=== PATIENT | male | born 1990 | race Caucasian/White ===

== ENCOUNTER 2019-05-20 06:41 | Day surgery (SDC) | payer BC ==
[2019-05-18 12:30] VITALS: BMI 44.9
[~2019-05-20 06:41] MED LIST: LACTATED RINGERS 1,000 ML IV SCH; LIDOCAINE 1% 20 ML VIAL (10MG/ML) FOR IV START INTRADERMA PRN
[2019-05-20 06:58] VITALS: TEMP 97.8
[2019-05-20] MEDS ORDERED: LACTATED RINGERS 1,000 ML IV ONE (07:05)
[2019-05-20] MEDS ORDERED: MIDAZOLAM 2 MG/2 ML VIAL ONE (07:36)
[2019-05-20] MEDS ORDERED: PROPOFOL 10 MG/ML 20 ML VIAL IV ONE (07:36)
[2019-05-20] MEDS ORDERED: fentaNYL (PF) 50 MCG/ML 2 ML AMP ONE (07:36)
--- NOTE | 2019-05-20 07:42 | P.GSHP ---
History of Present Illness H&P Date: 05/20/19 Chief Complaint: Change in bowel habits 29-year-old male here today for colonoscopy. Patient has had persistent left upper quadrant abdominal pain. History of diverticulitis 5 years ago. Some intermittent diarrhea and constipation. No rectal bleeding or melena. Past Medical History Past Medical History: No Reported History Additional Past Medical History / Comment(s): PAIN IN UPPER/MIDDLE ABD. DIVERTICULITIS 2013 History of Any Multi-Drug Resistant Organisms: None Reported Past Surgical History: No Surgical Hx Reported Additional Past Surgical History / Comment(s): COLONOSCOPY Past Anesthesia/Blood Transfusion Reactions: No Reported Reaction Additional Past Anesthesia/Blood Transfusion Reaction / Comment(s): never been given blood Smoking Status: Current every day smoker - Past Family History Mother Family Medical History: No Reported History Medications and Allergies Home Medications Medication Instructions Recorded Confirmed Type No Known Home Medications 05/18/19 05/18/19 History Allergies Allergy/AdvReac Type Severity Reaction Status Date / Time No Known Allergies Allergy Verified 05/18/19 12:23 Surgical - Exam Vital Signs Temp Pulse Resp BP Pulse Ox 97.8 F 81 18 148/93 96 05/20/19 06:57 05/20/19 06:57 05/20/19 06:57 05/20/19 06:57 05/20/19 06:57 Physical exam: General: Well-developed, well-nourished HEENT: Normocephalic, sclerae nonicteric, perinasal psoriasis Abdomen: Nontender, nondistended Extremities: No edema Neuro: Alert and oriented Assessment and Plan (1) Change in bowel habits Narrative/Plan: Will proceed with colonoscopy at this time Current Visit: Yes Status: Acute Code(s): R19.4 - CHANGE IN BOWEL HABIT SNOMED Code(s): 995439954
--- NOTE | 2019-05-20 07:57 | P.PCN ---
Date of Procedure: 05/20/19 Procedure(s) Performed: PREOPERATIVE DIAGNOSIS: Diverticulitis, change in bowel habits POSTOPERATIVE DIAGNOSIS: Diverticulosis PROCEDURE: Colonoscopy ANESTHESIA: MAC SURGEON: Amrit Giordano M.D. SPECIMENS: None ENDOSCOPIC PROCEDURE: The patient was placed on the endoscopy table in the left decubitus position. The Olympus colonoscope was inserted into the anus and passed under direct visualization to the base of the cecum. The appendiceal orifice was visualized. From that point the scope was slowly withdrawn inspecting all surfaces carefully. There were no neoplastic or polypoid lesions throughout the cecum, ascending, transverse, descending, sigmoid and rectum. There was mild left-sided diverticulosis noted. In the sigmoid colon there was noted to be very mild inflammatory changes seen sporadically. Digital rectal examination was normal. The patient was taken to the recovery room in stable condition per anesthesia guidelines. RECOMMENDATIONS: Patient's pain subjectively present in the left upper quadrant. We'll plan repeat CAT scan at this time. Symptoms could be related to mild chronic sigmoid diverticulitis. Looking at the patient's previous CAT scan in the area of diverticulitis was involving the junction of descending colon and sigmoid. Further recommendations will follow CAT scan study.
[2019-05-20 08:01] VITALS: RESP 16
[2019-05-20 08:21] VITALS: BP 129/84; PULSE 63
== END 2019-05-20 08:42 | disposition home or self-care (01) ==
LOC: ORWHC2ENDO 06:41
PROVIDERS: ATTEND Surgery
DX: K57.30 Diverticulosis of large intestine without perforation or abscess without bleeding (principal); F17.200 Nicotine dependence, unspecified, uncomplicated
CPT/HCPCS: 45378; J2250; J3010; J2704; 74177

== ENCOUNTER → 2019-05-20 | Outpatient (CLI) | payer BC ==
--- NOTE | 2019-05-20 12:26 | CT ---
EXAMINATION TYPE: CT abdomen pelvis w con DATE OF EXAM: 05/20/2019 COMPARISON: 06/16/2014 HISTORY: LUQ pain CT DLP: 4586.7 mGycm CONTRAST: CT scan of the abdomen and pelvis is performed with Oral Contrast and with IV Contrast, patient injec ilia with 100 mL of Isovue 300. FINDINGS: LUNG BASES-: No visible nodule. No infiltrate. LIVER/GB: No calcified gallstones. No space occupying hepatic lesion. Biliary tree is of normal ca liber. PANCREAS: No inflammation. No distinct mass. SPLEEN: No splenic enlargement. No lesion seen. ADRENALS: No nodule. No thickening. KIDNEYS/BLADDER: No hydronephrosis. No nephrolithiasis. No distinct renal mass. Urinary bladder g rossly unremarkable. BOWEL: Normal appendix. Normal bowel caliber. No inflammation. Scattered diverticula of the sigmoid colon without diverticulitis. GENITAL ORGANS: No gross abnormality. LYMPH NODES: No greater than 1cm abdominal or pelvic lymph nodes are appreciated. AORTA: No significant abnormality. OSSEOUS STRUCTURES: No significant abnormality is seen. OTHER: No significant additional abnormality is seen. IMPRESSION: 1. No evidence for diverticulitis at this time. Scattered sigmoid diverticulosis.
== END | disposition home or self-care (01) ==
LOC: RADCTMAIN 09:43
PROVIDERS: ATTEND Surgery
DX: K57.30 Diverticulosis of large intestine without perforation or abscess without bleeding (principal)
CPT/HCPCS: 74177; Q9967

== ENCOUNTER 2022-04-12 17:34 | Emergency (ER) | payer BC, OTHER ==
[2022-04-12 17:39] VITALS: RESP 18; TEMP 100
[2022-04-12] MEDS ORDERED: IBUPROFEN 600 MG TAB PO STA (18:15)
[2022-04-12] MEDS ORDERED: ACETAMINOPHEN TAB 325 MG TAB PO STA (18:15)
[2022-04-12] MEDS ORDERED: KETOROLAC 15 MG/ML 1 ML VIAL IVP STA (19:32)
[2022-04-12] MEDS ORDERED: SODIUM CHLORIDE 0.9% 1,000 ML IV STA ×2 (19:32→19:36)
--- NOTE | 2022-04-12 19:36 | ED ---
Abdominal Pain HPI - General Chief Complaint: Abdominal Pain Stated Complaint: abd pain Time Seen by Provider: 04/12/22 18:55 Source: patient, RN notes reviewed Mode of arrival: ambulatory Limitations: no limitations - History of Present Illness Initial Comments: 31-year-old male history diverticulitis the past who states he had the onset around 7 this morning lower abdominal pain so she left lower quadrant some right upper quadrant also chills and fever. No diarrhea no vomiting until he arrived to the emergency department. No cough or phlegm production no sore throat earaches rhinorrhea. He states he feels very summer to his prior episode of d iverticulitis 07/07 severity dull achy in nature he also back pain he states. MD Complaint: abdominal pain, other - Related Data Home Medications Medication Instructions Recorded Confirmed No Known Home Medications 05/18/19 05/18/19 Allergies Allergy/AdvReac Type Severity Reaction Status Date / Time No Known Allergies Allergy Verified 04/12/22 17:38 Review of Systems ROS Statement: Those systems with pertinent positive or pertinent negative responses have been documented in the HPI. ROS Other: All systems not noted in ROS Statement are negative. Past Medical History Past Medical History: No Reported History Additional Past Medical History / Comment(s): PAIN IN UPPER/MIDDLE ABD. DIVERTICULITIS 2014 History of Any Multi-Drug Resistant Organisms: None Reported Past Surgical History: No Surgical Hx Reported Additional Past Surgical History / Comment(s): COLONOSCOPY Past Anesthesia/Blood Transfusion Reactions: No Reported Reaction Additional Past Anesthesia/Blood Transfusion Reaction / Comment(s): never been given blood Past Psychological History: No Psychological Hx Reported Smoking Status: Current every day smoker Past Alcohol Use History: Occasional Past Drug Use History: Marijuana - Past Family History Mother Family Medical History: No Reported History General Exam - General Exam Comments Initial Comments: This is a well-developed well-nourished awake alert oriented 6 male Limitations: no limitations General appearance: alert, in no apparent distress Head exam: Present: atraumatic, normocephalic, normal inspection Eye exam: Present: normal appearance, PERRL, EOMI. Absent: scleral icterus, conjunctival injection, periorbital swelling ENT exam: Present: normal exam, mucous membranes moist Neck exam: Present: normal inspection, full ROM, other (Surgery or bruits). Absent: tenderness, meningismus, lymphadenopathy Respiratory exam: Present: normal lung sounds bilaterally. Absent: respiratory distress, wheezes, rales, rhonchi, stridor Cardiovascular Exam: Present: normal rhythm, tachycardia. Absent: systolic murmur, diastolic murmur, rubs, gallop, clicks GI/Abdominal exam: Present: soft, tenderness (Tenderness over the left lower quadrant and some right upper quadrant tenderness.), normal bowel sounds. Absent: distended, guarding, rebound, rigid Rectal exam: Present: deferred Extremities exam: Present: normal inspection, full ROM, normal capillary refill. Absent: tenderness, pedal edema, joint swelling, calf tenderness Back exam: Present: normal inspection, full ROM. Absent: tenderness Neurological exam: Present: alert, oriented X3, CN II-XII intact Psychiatric exam: Present: normal affect, normal mood Skin exam: Present: warm, dry, intact, normal color. Absent: rash Course Vital Signs 04/12/22 17:35 Temperature 100 F H Pulse Rate 130 H Respiratory 18 Rate Blood Pressure 123/78 O2 Sat by Pulse 99 Oximetry Medical Decision Making - Medical Decision Making Patient is so much improved after the next round of medication given. Patient does have COVID-19 is likely this is the cause of the pain he was dehydrated also. We did discuss treatment outpatient he declined at this time. Rather do it naturally. - Lab Data Result diagrams: 04/12/22 20:05 04/12/22 20:05 Lab Results 04/12/22 04/12/22 04/12/22 Range/Units 17:42 20:05 20:05 WBC 10.1 (3.8-10.6) k/uL RBC 5.39 (4.30-5.90) m/uL Hgb 16.3 (13.0-17.5) gm/dL Hct 48.8 (39.0-53.0) % MCV 90.4 (80.0-100.0) fL MCH 30.3 (25.0-35.0) pg MCHC 33.5 (31.0-37.0) g/dL RDW 13.6 (11.5-15.5) % Plt Count 240 (150-450) k/uL MPV 7.8 Neutrophils % 86 % Lymphocytes % 4 % Monocytes % 6 % Eosinophils % 1 % Basophils % 0 % Neutrophils # 8.7 H (1.3-7.7) k/uL Lymphocytes # 0.4 L (1.0-4.8) k/uL Monocytes # 0.7 (0-1.0) k/uL Eosinophils # 0.1 (0-0.7) k/uL Basophils # 0.0 (0-0.2) k/uL Sodium 137 (137-145) mmol/L Potassium 3.8 (3.5-5.1) mmol/L Chloride 105 (98-107) mmol/L Carbon Dioxide 24 (22-30) mmol/L Anion Gap 8 mmol/L BUN 11 (9-20) mg/dL Creatinine 0.80 (0.66-1.25) mg/dL Est GFR (CKD-EPI)AfAm >90 (>60 ml/min/1.73 sqM) Est GFR (CKD-EPI)NonAf >90 (>60 ml/min/1.73 sqM) Glucose 97 (74-99) mg/dL Plasma Lactic Acid Daryn (0.7-2.0) mmol/L Calcium 9.4 (8.4-10.2) mg/dL Total Bilirubin 0.4 (0.2-1.3) mg/dL AST 21 (17-59) U/L ALT 23 (4-49) U/L Alkaline Phosphatase 67 (38-126) U/L Total Protein 7.4 (6.3-8.2) g/dL Albumin 4.4 (3.5-5.0) g/dL Amylase 53 (30-110) U/L Lipase 30 (23-300) U/L Coronavirus (PCR) Detected A (Not Detectd) 04/12/22 Range/Units 20:05 WBC (3.8-10.6) k/uL RBC (4.30-5.90) m/uL Hgb (13.0-17.5) gm/dL Hct (39.0-53.0) % MCV (80.0-100.0) fL MCH (25.0-35.0) pg MCHC (31.0-37.0) g/dL RDW (11.5-15.5) % Plt Count (150-450) k/uL MPV Neutrophils % % Lymphocytes % % Monocytes % % Eosinophils % % Basophils % % Neutrophils # (1.3-7.7) k/uL Lymphocytes # (1.0-4.8) k/uL Monocytes # (0-1.0) k/uL Eosinophils # (0-0.7) k/uL Basophils # (0-0.2) k/uL Sodium (137-145) mmol/L Potassium (3.5-5.1) mmol/L Chloride (98-107) mmol/L Carbon Dioxide (22-30) mmol/L Anion Gap mmol/L BUN (9-20) mg/dL Creatinine (0.66-1.25) mg/dL Est GFR (CKD-EPI)AfAm (>60 ml/min/1.73 sqM) Est GFR (CKD-EPI)NonAf (>60 ml/min/1.73 sqM) Glucose (74-99) mg/dL Plasma Lactic Acid Daryn 1.0 (0.7-2.0) mmol/L Calcium (8.4-10.2) mg/dL Total Bilirubin (0.2-1.3) mg/dL AST (17-59) U/L ALT (4-49) U/L Alkaline Phosphatase (38-126) U/L Total Protein (6.3-8.2) g/dL Albumin (3.5-5.0) g/dL Amylase (30-110) U/L Lipase (23-300) U/L Coronavirus (PCR) (Not Detectd) - Radiology Data Radiology results: report reviewed (Imaging reviewed no acute findings.), image reviewed Disposition Clinical Impression: COVID-19, Abdominal pain, Febrile illness, acute, Dehydration, Tachycardia Disposition: HOME SELF-CARE Condition: Good Instructions (If sedation given, give patient instructions): Abdominal Pain (ED), COVID-19 (Coronavirus Disease 2019) (ED), Safely Care for Someone Who Has COVID-19 (ED), How to Recover from COVID-19 at Home (ED) Is patient prescribed a controlled substance at d/c from ED?: No Referrals: Eriberto Oshea MD [Primary Care Provider] - 1-2 days Decision Date: 04/12/22 Decision Time: 23:12
[2022-04-12 20:26] LABS: Basophils % (A) 0 %; Eosinophils # (A) 0.1 k/uL (0-0.7); Eosinophils % (A) 1 %; HCT 48.8 % (39.0-53.0); HGB 16.3 gm/dL (13.0-17.5); Lymphocytes # (A) 0.4 k/uL (1.0-4.8); Lymphocytes % (A) 4 %; MCH 30.3 pg (25.0-35.0); MCHC 33.5 g/dL (31.0-37.0); MCV 90.4 fL (80.0-100.0); Mean Platelet Volume 7.8; Monocytes # (A) 0.7 k/uL (0-1.0); Monocytes % (A) 6 %; Neutrophils # (A) 8.7 k/uL (1.3-7.7); Neutrophils % (A) 86 %; Platelet Count 240 k/uL (150-450); RBC 5.39 m/uL (4.30-5.90); RDW 13.6 % (11.5-15.5); WBC 10.1 k/uL (3.8-10.6)
[2022-04-12 20:48] LABS: ALT 23 U/L (4-49); AST 21 U/L (17-59); African American GFR (CKD) >90 (>60 ml/min/1.73 sqM); Albumin 4.4 g/dL (3.5-5.0); Alkaline Phosphatase 67 U/L (38-126); Amylase 53 U/L (30-110); Anion Gap 8 mmol/L; Blood Urea Nitrogen 11 mg/dL (9-20); Calcium 9.4 mg/dL (8.4-10.2); Carbon Dioxide 24 mmol/L (22-30); Chloride 105 mmol/L (98-107); Glucose 97 mg/dL (74-99); Lipase 30 U/L (23-300); Non-African American GFR(CKD) >90 (>60 ml/min/1.73 sqM); Potassium 3.8 mmol/L (3.5-5.1); Sodium 137 mmol/L (137-145); Total Bilirubin 0.4 mg/dL (0.2-1.3); Total Protein 7.4 g/dL (6.3-8.2)
[2022-04-12] MEDS ORDERED: HYDROmorphone 1 MG/ML 1 ML SYRINGE IVP STA (21:43)
--- NOTE | 2022-04-12 22:06 | CT ---
EXAMINATION TYPE: CT abdomen pelvis wo con DATE OF EXAM: 04/12/2022 COMPARISON: 05/20/2019 HISTORY: LLQ pain CT DLP: 2785.4 mGycm Automated exposure control for dose reduction was used. Images obtained from the diaphragm to the floor the pelvis with no contrast. Lung bases are clear. No pleural effusion. No pericardial effusion. Liver spleen and stomach pancreas gallbladder appear intact. Bile ducts are not dilated. There is no adrenal mass. Kidneys show normal size and contour. No hydronephrosis. Ureters are not di lated. No retroperitoneal adenopathy. The bladder distends smoothly. No inguinal hernia. No free flui d in the pelvis. There is no mesenteric edema. No ascites or free air. No sign of a bowel obstruction . Appendix appears normal. The bony pelvis is intact. Lumbar spine is intact. No compression fracture. Hip joints are intact. IMPRESSION: Normal appendix. No renal stone or obstruction. No sign of acute abnormality of the abdomen and pelvi s. There are some scattered sigmoid diverticula without diverticulitis. No significant change compare d to old exam.
[2022-04-12] MEDS ORDERED: DICYCLOMINE 10 MG/ML 2 ML AMP IM STA (22:15)
[2022-04-12 23:43] VITALS: BP 137/84; PULSE 93
== END 2022-04-12 23:42 | disposition home or self-care (01) ==
LOC: EC 17:34
DX: U07.1 COVID-19 (principal); F17.200 Nicotine dependence, unspecified, uncomplicated
CPT/HCPCS: 99284; 96374; 96375; 96361; 36415; 80053; 82150; 83605; 83690; 85025; 87040; 87635; 74176; J1170; J1885

== ENCOUNTER 2023-02-04 15:27 | Emergency (ER) | payer MEDICAID, OTHER ==
--- NOTE | 2023-02-04 15:47 | ED ---
Extremity Problem HPI - General Chief complaint: Fall Stated complaint: Knee pain- slip fall Time Seen by Provider: 02/04/23 15:38 Source: patient, RN notes reviewed, old records reviewed Mode of arrival: ambulatory Limitations: no limitations - History of Present Illness Initial comments: This is a 32-year-old male to the emergency department for evaluation patient presents today for evaluation of severe left knee pain left knee injury fell down onto his left knee with significant swelling. Patient has history of ACL tear in the knee with no repair. He did undergo significant amount of rehabilitation on that knee but it does occasionally give out on him. He has significant swelling to that knee compared to his right and severe pain. No other injury from the fall and no other significant trauma. Patient is able to bear weight on his left leg but states the swelling is increasing and the pain is increasing MD Complaint: extremity pain, joint pain -: hour(s) Location: left, knee History of Same: Yes -: Yes arthralgia Radiation: proximal Severity scale (1-10): 4 Quality: stabbing, aching Consistency: constant Improves with: nothing Worsens with: nothing Associated Symptoms: denies other symptoms - Related Data Home Medications Medication Instructions Recorded Confirmed No Known Home Medications 05/18/19 05/18/19 Allergies Allergy/AdvReac Type Severity Reaction Status Date / Time No Known Allergies Allergy Verified 02/04/23 15:30 Review of Systems ROS Statement: Those systems with pertinent positive or pertinent negative responses have been documented in the HPI. ROS Other: All systems not noted in ROS Statement are negative. Past Medical History Past Medical History: No Reported History Additional Past Medical History / Comment(s): PAIN IN UPPER/MIDDLE ABD. DIVERTICULITIS 2013 History of Any Multi-Drug Resistant Organisms: None Reported Past Surgical History: No Surgical Hx Reported Additional Past Surgical History / Comment(s): COLONOSCOPY Past Anesthesia/Blood Transfusion Reactions: No Reported Reaction Additional Past Anesthesia/Blood Transfusion Reaction / Comment(s): never been given blood Past Psychological History: No Psychological Hx Reported Smoking Status: Current every day smoker Past Alcohol Use History: Occasional Past Drug Use History: Marijuana - Past Family History Mother Family Medical History: No Reported History General Exam Limitations: no limitations General appearance: alert, in no apparent distress Head exam: Present: atraumatic, normocephalic, normal inspection Eye exam: Present: normal appearance, PERRL, EOMI. Absent: scleral icterus, conjunctival injection, periorbital swelling ENT exam: Present: normal exam, mucous membranes moist Neck exam: Present: normal inspection. Absent: tenderness, meningismus, lymphadenopathy Respiratory exam: Present: normal lung sounds bilaterally. Absent: respiratory distress, wheezes, rales, rhonchi, stridor Cardiovascular Exam: Present: regular rate, normal rhythm, normal heart sounds. Absent: systolic murmur, diastolic murmur, rubs, gallop, clicks GI/Abdominal exam: Present: soft, normal bowel sounds. Absent: distended, tenderness, guarding, rebound, rigid Extremities exam: Present: normal inspection, full ROM, tenderness (Left knee tenderness to touch significant edema with effusion and decreased range of motion), normal capillary refill. Absent: pedal edema, joint swelling, calf tenderness Back exam: Present: normal inspection Neurological exam: Present: alert, oriented X3, CN II-XII intact Psychiatric exam: Present: normal affect, normal mood Skin exam: Present: warm, dry, intact, normal color. Absent: rash Course Vital Signs 02/04/23 15:29 Temperature 98 F Pulse Rate 104 H Respiratory 16 Rate Blood Pressure 138/90 O2 Sat by Pulse 96 Oximetry - Reevaluation(s) Reevaluation #1: 02/04/23 18:02 Medical records reviewed Reevaluation #2: 02/04/23 18:03 Patient's pain is resolved with second pain medication Reevaluation #3: 02/04/23 18:03 Results and questions answered Reevaluation #4: Was pt. sent in by a medical professional or institution? @ -no Did you speak to anyone other than the patient for history? @ -no Did you review nursing and triage notes? @ -agree Were old charts reviewed? @ -no Differential Diagnosis? @ -prior EKG interpreted by me (3pts min.)? @ -yes X-rays interpreted by me (1pt min.)? @ -yes CT interpreted by me (1pt min.)? @ -no U/S interpreted by me (1pt. min.)? @ -no What testing was considered but not performed? (CT, X-rays, U/S, labs)? Why? @ -no What meds were considered but not given? Why? @ -no Did you discuss the management of the patient with other professionals? @ -no Did you reconcile home meds? @ -no Was smoking cessation discussed for >3mins.? @ -no Was critical care preformed (if so, how long)? @ -no Were there social determinants of health that impacted care today? How? (Homelessness, low income, unemployed, alcoholism, drug addiction, transportation, low edu. Level, literacy, decrease access to med. care, usp, rehab)? @ -no Was there de-escalation of care discussed even if they declined? (Discuss DNR or withdrawal of care, Hospice)? @ -no What co-morbidities impacted this encounter? (DM, HTN, Smoking, COPD, CAD, Cancer, CVA, Hep., AIDS, mental health diagnosis, sleep apnea, morbid obesity)? @ -no Was patient admitted / discharged? @ -dc Undiagnosed new problem with uncertain prognosis? @ -no Drug Therapy requiring intensive monitoring for toxicity (Heparin, Nitro, Insulin, Cardizem)? @ -no Were any procedures done? @ -no Diagnosis/symptom? @ -left knee effusion Acute, or Chronic, or Acute on Chronic? @ -acute Uncomplicated (without systemic symptoms) or Complicated (systemic symptoms)? @ -no Side effects of treatment? @ -no Exacerbation, Progression, or Severe Exacerbation] @ -no Poses a threat to life or bodily function? @ -no Medical Decision Making - Medical Decision Making 32 male to the emergency department with left knee pain traumatic left knee pain significant swelling tenderness and effusion. X-rays negative for traumatic injury and does demonstrate positive acute and patient can be discharged home - Radiology Data Radiology results: report reviewed (X-ray of Left knee. Positive for joint effusion), image reviewed Disposition Clinical Impression: Fall, Left knee pain, Effusion, left knee Disposition: HOME SELF-CARE Condition: Good Instructions (If sedation given, give patient instructions): Swollen Knee Joint (ED), Knee Pain (ED) Is patient prescribed a controlled substance at d/c from ED?: No Referrals: Eriberto Oshea MD [Primary Care Provider] - 1-2 days Hoang Bagley DO [Doctor of Osteopathic Medicine] - 1-2 days Time of Disposition: 17:25
[2023-02-04] MEDS ORDERED: NAPROXEN 250 MG TAB PO STA (16:15)
[2023-02-04] MEDS ORDERED: Acetaminophen-Codeine 300-30mg TAB PO STA (16:15)
[2023-02-04] MEDS ORDERED: IBUPROFEN 600 MG STARTER PACK 4 TAB BTL PO STA (17:04)
[2023-02-04] MEDS ORDERED: traMADol 50 MG STARTER PACK 3 TAB BTL PO STA (17:04)
[2023-02-04] MEDS ORDERED: ACET/COD 300 MG/30 MG STARTER PACK 6 TAB BTL PO STA (17:04)
[2023-02-04] MEDS ORDERED: HYDROmorphone 1 MG/ML 1 ML SYRINGE IM STA (17:04)
--- NOTE | 2023-02-04 17:47 | XR ---
EXAMINATION TYPE: XR knee complete LT DATE OF EXAM: 02/04/2023 4:41 PM INDICATION: Patient age:Male; 32 years old; Reason for study: fall; COMPARISON: 04/27/2011 TECHNIQUE: The Left knee(s) was examined in Frontal, lateral and oblique projections. FINDINGS: No evidence of any acute osseous pathology, soft tissue swelling. There is felt to be a j oint effusion. However the lateral view is somewhat limited. There is a new osseous body in the posterior lateral aspect not seen on prior in 2011r and measures 6 x 3 mm. IMPRESSION: 1. New osseous body present just off the lateral aspect of the femoral condyle laterally. Finding co uld represent a fabella versus prior injury. This is not present on 2011 study. No acute fractures de finitively visualized. There remains concern consider CT. 2. Joint effusion on lateral view. Consider MRI for further evaluation of soft tissues. This could b e secondary to #1.
[2023-02-04 18:33] VITALS: BP 121/84; PULSE 81; RESP 18; TEMP 98.1
== END 2023-02-04 18:33 | disposition home or self-care (01) ==
LOC: EC 15:27
DX: M25.462 Effusion, left knee (principal); F12.90 Cannabis use, unspecified, uncomplicated; F17.200 Nicotine dependence, unspecified, uncomplicated; W01.0XXA Fall on same level from slipping, tripping and stumbling without subsequent striking against object, initial encounter
CPT/HCPCS: 99284 ×2; 96372 ×2; 73562; J1170

== ENCOUNTER → 2023-02-11 | Outpatient (CLI) | payer MEDICAID ==
--- NOTE | 2023-02-12 08:50 | MR ---
EXAMINATION TYPE: MR knee LT wo con DATE OF EXAM: 02/11/2023 COMPARISON: Radiographs 02/04/2023 HISTORY: 32-year-old male M23.307 Left knee pain due to slipping on wet surface TECHNIQUE: Multiplanar, multisequence imaging of the left knee is performed without IV contrast. FINDINGS: The ACL and PCL are intact. Mild edema on either side of the intact MCL. Mild increased signal at the femoral attachment of the LCL proper. LCL complex otherwise intact. Medial meniscus is intact. Mild diffuse thinning of medial compartment articular cartilage volume. Lateral meniscus is intact. Focal moderate to severe irregular cartilage loss measuring 9 mm wide and 2.8 cm AP along the anterior to mid aspect of the peripheral lateral femoral condyle articular surfa ce. Associated marrow edema. There is underlying trochanter dysplasia with a short medial trochlear facet and shallow superior tro chlear groove. The medial patellofemoral ligament is diffusely heterogeneous and stretched out. Extensive soft tissu e edema. Partial tear at its patellar attachment and additional tear at its femoral attachment. Secon briseida lateral patellar tilt. Foci of low signal intensity scattered throughout the knee joint, largest area measuring 3.3 x 0.6 cm extending towards the lateral gutter likely areas of hemorrhagic debris. There is a large joint effusion and generalized synovial thickening. Suspect a large 1.2 cm cleaved cartilage fragment from the mid and medial patellar facets. Marrow rafa ma along the medial aspect of the patella and suspected small avulsion fractures. There is a ruptured Holman cyst present with extensive edema tracking down the posteromedial calf. Prominent anterior soft tissue swelling. Normal popliteal artery anatomy. Mild generalized muscle atrophy. No suspicious bone marrow replaceme nt. IMPRESSION: 1. 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 Corresp onding kissing bone bruises. Tear of the MPFL at its femoral attachment and partial avulsion at its p atellar attachment. Suspect a 1.2 cm nondisplaced, large cartilage flap involving the mid and medial patellar facets. 2. The lateral femoral condylar bone bruise shows moderate to severe focal irregular cartilage loss m easuring 2.8 cm AP and 9 mm wide. 3. Large joint effusion with mild chronic synovitis and scattered low signal foci in the knee joint, largest measuring 3.3 x 0.6 cm, likely some hemorrhagic debris. 4. Ruptured Holman's cyst with secondary edema down the posteromedial calf. Anterior soft tissue swell ing. 5. Grade 1 MCL sprain. Grade 1 sprain at the femoral attachment of the LCL proper.
== END | disposition home or self-care (01) ==
LOC: RADMRIMAIN 16:36
PROVIDERS: ATTEND Orthopaedic Surgery
DX: S83.512A Sprain of anterior cruciate ligament of left knee, initial encounter (principal); S80.02XA Contusion of left knee, initial encounter; S83.005A Unspecified dislocation of left patella, initial encounter; M71.22 Synovial cyst of popliteal space [Baker], left knee; M25.462 Effusion, left knee; M65.852 Other synovitis and tenosynovitis, left thigh

== ENCOUNTER → 2023-05-21 | Outpatient (CLI) | payer MEDICAID ==
[2023-05-21 19:51] LABS: BUN/Creat Ratio 15.11 Ratio (12.00-20.00); Blood Urea Nitrogen 13.6 mg/dL (9.0-27.0); Calcium 10.2 mg/dL (8.7-10.3); Chloride 104 mmol/L (96-109); Glucose 88 mg/dL (70-110); Potassium 4.9 mmol/L (3.5-5.5); Sodium 144 mmol/L (135-145)
[2023-05-21 22:56] LABS: Basophils # (A) 0.05 X 10*3/uL (0.00-0.10); Basophils % (A) 0.5 %; Eosinophils # (A) 0.19 X 10*3/uL (0.04-0.35); Eosinophils % (A) 1.9 %; HCT 53.3 % (39.6-50.0); Lymphocytes # (A) 2.66 X 10*3/uL (0.90-5.00); MCH 29.3 pg (27.0-32.0); MCHC 31.9 d/dL (32.0-37.0); MCV 91.9 FL (80.0-97.0); Mean Platelet Volume 11.3 FL (9.5-12.2); Monocytes # (A) 0.66 X 10*3/uL (0.20-1.00); Monocytes % (A) 6.4 %; NRBC Per 100 WBC 0 X 10*3/uL (0.00-0.01); Neutrophils # (A) 6.66 X 10*3/uL (1.80-7.70); Neutrophils % (A) 64.9 %; Platelet Count 286 X 10*3/uL (140-440); RDW 14.4 % (11.5-14.5); WBC 10.25 X 10*3/uL (4.50-10.00)
== END | disposition home or self-care (01) ==
LOC: LABPAT 15:53
PROVIDERS: ATTEND Orthopaedic Surgery
DX: Z01.812 Encounter for preprocedural laboratory examination (principal); M23.92 Unspecified internal derangement of left knee
CPT/HCPCS: 80048; 85025

== ENCOUNTER 2023-05-26 06:02 | Day surgery (SDC) | payer MEDICAID ==
[2023-05-19 16:07] VITALS: BMI 45.6
--- NOTE | 2023-05-25 08:45 | P.HPOR ---
History of Present Illness H&P Date: 05/25/23 Chief Complaint: Left knee pain The patient is a 33-year-old male who presents with left knee pain after an injury in January of this year. He fell at a car wash. He notes intermittent buckling and locking. He notes instability. He has a history of left patellar dislocations. He's tried therapy along with medications without much relief. He notes daily pain that limits him. Review of Systems As per HPI Past Medical History Past Medical History: No Reported History Additional Past Medical History / Comment(s): DIVERTICULITIS, psoriasis History of Any Multi-Drug Resistant Organisms: None Reported Past Surgical History: No Surgical Hx Reported Additional Past Surgical History / Comment(s): COLONOSCOPY Past Anesthesia/Blood Transfusion Reactions: No Reported Reaction Additional Past Anesthesia/Blood Transfusion Reaction / Comment(s): never been given blood Past Psychological History: No Psychological Hx Reported Additional Psychological History / Comment(s): . Smoking Status: Current every day smoker Past Alcohol Use History: None Reported Additional Past Alcohol Use History / Comment(s): SMOKES 1 PPD SINCE AGE 18 Past Drug Use History: None Reported Additional Drug Use History / Comment(s): . - Past Family History Mother Family Medical History: No Reported History Medications and Allergies Home Medications Medication Instructions Recorded Confirmed Type No Known Home Medications 05/18/19 05/19/23 History Allergies Allergy/AdvReac Type Severity Reaction Status Date / Time No Known Allergies Allergy Verified 05/19/23 16:00 Physical Examination - Knee left Appearance: effusion Effusion grade: grade 1 Tenderness with palpation: anterior, medial Pain: throughout ROM Gait: limping ROM: extension: -10 degrees ROM: flexion: 120 degrees Crepitus with motion: Yes Strength: extension: 5/5 Strength: flexion: 5/5 Meniscal tests: medial joint line pain: positive Results The patient is a well-developed well-nourished male approximately 6 foot 1, 355 pounds of endomorphic habitus. HEENT exam is nonfocal, neck is supple. He has painless passive motion of the left hip. Straight leg raise is negative. On the left knee, he is tender about the medial greater than lateral patellar facet. He has pain with patellofemoral compression. Patellar glide is 2 quadrants lateral and 1 and one half quadrants medially. His distal neurovascular appears intact in left lower extremity. 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 A lateral femoral condyle chondral defect is noted. Increased signal involving the medial and lateral collateral ligament are noted.) Assessment and Plan Assessment: Left knee internal derangement/possible loose body History of left patellofemoral instability Left lateral femoral condyle chondral injury Plan: I talked the patient regarding his condition along treatment options. At this point is having persistent pain and mechanical symptoms despite conservative measures. After thorough discussion as to proceed with surgery. We'll plan to proceed with arthroscopic evaluation with possible loose body removal, possible lateral femoral chondrectomy with possible microfracture. Risks and benefits were discussed at length in layman's terms. We will likely perform that as an outpatient procedure.
[~2023-05-26 06:02] MED LIST changes: -LACTATED RINGERS 1,000 ML IV SCH; -LIDOCAINE 1% 20 ML VIAL (10MG/ML) FOR IV START INTRADERMA PRN; +ceFAZolin 3 GM in SODIUM CHLORIDE 0.9% 100 ML IVPB PRN
[2023-05-26] MEDS ORDERED: ONDANSETRON 4 MG/2 ML VIAL ONE (06:49)
[2023-05-26] MEDS ORDERED: LIDOCAINE 1% (10MG/ML) FOR IV START INTRADERMA PRN (07:05)
[2023-05-26] MEDS ORDERED: MIDAZOLAM 2 MG/2 ML VIAL IV PRN (07:05)
[2023-05-26] MEDS ORDERED: DEXAMETHASONE SOD PHOSPHATE 4 MG/ML 1 ML VIAL IV ONE (07:05)
[2023-05-26] MEDS ORDERED: ONDANSETRON 4 MG/2 ML VIAL IVP ONE (07:05)
[2023-05-26] MEDS ORDERED: LACTATED RINGERS 1,000 ML IV SCH (07:05)
[2023-05-26] MEDS ORDERED: fentaNYL (PF) 50 MCG/ML 2 ML AMP ONE (07:29)
[2023-05-26] MEDS ORDERED: HYDROmorphone (PF) 1 MG/ML ONE (07:29)
[2023-05-26] MEDS ORDERED: LIDOCAINE 2% INJ 20 MG/ML (2 ML VIAL) ONE (07:29)
[2023-05-26] MEDS ORDERED: PROPOFOL 10 MG/ML 20 ML VIAL IV ONE (07:29)
[2023-05-26] MEDS ORDERED: SUCCINYLCHOLINE CHLORIDE 200 MG/10 ML VIAL IV ONE (07:29)
[2023-05-26] MEDS ORDERED: MIDAZOLAM 2 MG/2 ML VIAL ONE (07:29)
--- NOTE | 2023-05-26 08:22 | P.OP ---
Date of Procedure: 05/26/23 Preoperative Diagnosis: Left knee internal derangement Postoperative Diagnosis: Loose body left knee 1 x 1 cm, grade 3 chondral injury the anterior lateral femoral condyle, grade 3 chondral injury medial patellar facet, anterior lateral meniscal tear Procedure(s) Performed: Left knee arthroscopic loose body removal 1 x 1 cm, partial lateral meniscectomy, patellar chondroplasty Anesthesia: LOWELLA Surgeon: Loy Pierre Estimated Blood Loss (ml): 10 Pathology: none sent Condition: stable Disposition: PACU Indications for Procedure: The patient is a 33-year-old male who presents with progressive left knee pain and mechanical symptoms after a previous injury despite conservative measures. A discussion of the risks and benefits of operative intervention versus continued conservative measures was made with the patient. He opted to proceed with surgery. Operative risks to include infection, neurovascular injury, development of blood clots, possible incomplete resolution of symptoms, possible worsening symptoms and need for subsequent procedures was discussed. Informed consent was obtained. Operative Findings: As below Description of Procedure: The patient was brought to the operating room, and after induction of general anesthesia examined the left knee. Collaterals were stable, Ishaan was negative, and posterior drawer was negative. The left lower extremity was prepped and draped in a normal fashion. A superior lateral portal was made through a 3 mm skin incision superior and lateral to the patella. This was used for outflow. A lateral portal was made through a 5 mm vertical skin incision lateral to the patella tendon above the joint line. Diagnostic arthroscopy was performed. On inspection of the medial compartment, the medial meniscus was stable and intact. No significant degenerative changes in the medial compartment were noted.. On inspection of the notch, the anterior cruciate ligament appeared to be intact. On inspection of the lateral compartment, a tear involving the anterior horn of the lateral meniscus in the white-white junction was noted with impingement on the notch. This was debrided back to stable base with straight baskets and a motorized shaver. The remaining lateral meniscus appeared stable and intact. A grade 3 chondral injury involving the anterior lateral aspect of the lateral femoral condyle was noted. There is no loose chondral fragments. A loose body measuring 1 x 1 cm was noted in the anterior aspect of the knee. This was removed with a grasper. On inspection of the patellofemoral articulation, significant chondral injury and defects were noted involving the medial patella facet. There was a loose chondral flap debrided back to stable base with a motorized shaver.. The gutters were clear debris. The knee was then thoroughly irrigated. The portals were closed with Steri-Strips. A sterile dressing was applied in addition to a compression stocking. The patient was awoken from general anesthesia and transferred to recovery room in good condition. Blood loss was estimated at 10 mL. No complications were incurred.
[2023-05-26] MEDS: HYDROmorphone 0.5 MG/0.5 ML SYRINGE IVP PRN ×4 (08:32→09:06)
[2023-05-26 08:50] VITALS: TEMP 98
[2023-05-26] MEDS ORDERED: LACTATED RINGERS 1,000 ML IV ONE ×2 (09:12)
[2023-05-26] MEDS ORDERED: HYDROcodone/APAP 7.5-325MG 1 EACH TAB ONE (09:46)
[2023-05-26 10:17] VITALS: BP 125/58; PULSE 85; RESP 17
== END 2023-05-26 10:25 | disposition home or self-care (01) ==
LOC: OR 06:02
PROVIDERS: ATTEND Orthopaedic Surgery
DX: M23.301 Other meniscus derangements, unspecified lateral meniscus, left knee (principal); G47.33 Obstructive sleep apnea (adult) (pediatric); F17.210 Nicotine dependence, cigarettes, uncomplicated; W19.XXXA Unspecified fall, initial encounter
CPT/HCPCS: 29881; J2250; J0330; J1100; J0690; J2405; J3010; J1170 ×2; J2704; J2001

== ENCOUNTER → 2024-02-18 | Outpatient (CLI) | payer MEDICAID ==
--- NOTE | 2024-02-18 13:01 | CA ---
Transthoracic Echo Report Name: Uriah Jackson Age: 33 Gender: M : 1990 Exam Date: 02/18/2024 08:36 Exam Location: [facility] Ht (in): 74 Wt (lb): 370 Ordering Physician: Eriberto Oshea MD Attending/Referring Phys: Eriberto Oshea MD Web Master Emerita [facility] Procedure CPT: Indications: I10 HYPERTENSION Z82.49 FAMILY HISTORY Cardiac Hx: Technical Quality: Technically difficult study Contrast 1: Definity Total Dose (mL): 2 Contrast 2: Total Dose (mL): MEASUREMENTS (Male / Female) Normal Values 2D ECHO LV Diastolic Diameter PLAX 3.7 cm 4.2 - 5.9 / 3.9 - 5.3 cm LV Systolic Diameter PLAX 2.4 cm IVS Diastolic Thickness 1.4 cm 0.6 - 1.0 / 0.6 - 0.9 cm LVPW Diastolic Thickness 1.6 cm 0.6 - 1.0 / 0.6 - 0.9 cm LV Relative Wall Thickness 0.8 RV Internal Dim ED PLAX 3.8 cm LVOT Diameter 2.4 cm LV Diastolic Volume MOD BP 191.8 cm??? 67 - 155 / 56 - 104 cm??? LV Systolic Volume MOD BP 79.2 cm??? 22 - 58 / 19 - 49 cm??? LV Ejection Fraction MOD BP 58.7 % >= 55 % LV Cardiac Index MOD BP 2630.5 cm???/min???m??? LV Diastolic Volume MOD 4C 196.1 cm??? LV Systolic Volume MOD 4C 86.8 cm??? LV Ejection Fraction MOD 4C 55.7 % LV Cardiac Index MOD 4C 2551.4 cm???/min???m??? LV Diastolic Length 4C 9.8 cm LV Systolic Length 4C 8.0 cm LV Diastolic Volume MOD 2C 188.5 cm??? LV Systolic Volume MOD 2C 69.2 cm??? LV Ejection Fraction MOD 2C 63.3 % LV Cardiac Index MOD 2C 2786.3 cm???/min???m??? LV Diastolic Length 2C 9.7 cm LV Systolic Length 2C 7.6 cm LA Volume 66.4 cm??? 18 - 58 / 22 - 52 cm??? LA Volume Index 21.9 cm???/m??? 16 - 28 cm???/m??? Ascending Aorta Diameter 3.1 cm DOPPLER AV Peak Velocity 125.5 cm/s AV Peak Gradient 6.3 mmHg AV Mean Velocity 88.5 cm/s AV Mean Gradient 3.5 mmHg AV Velocity Time Integral 26.6 cm LVOT Peak Velocity 116.1 cm/s LVOT Peak Gradient 5.4 mmHg LVOT Velocity Time Integral 22.9 cm LVOT Stroke Volume 107.0 cm??? LVOT Stroke Volume Index 37.9 ml/m??? LVOT Cardiac Index 2498.8 cm???/min???m??? AV Area Cont Eq vti 4.0 cm??? AV Area Cont Eq pk 4.3 cm??? MV Area PHT 3.3 cm??? Mitral E Point Velocity 60.5 cm/s Mitral A Point Velocity 58.8 cm/s Mitral E to A Ratio 1.0 MV Deceleration Time 231.5 ms PV Peak Velocity 124.9 cm/s PV Peak Gradient 6.2 mmHg FINDINGS Left Ventricle Left ventricular ejection fraction is estimated at 55-60 %. Moderately increased septal wall thickness. Moderately increased left ventricular diastolic volume. Moderately increased left ventricular systolic volume. No obvious regional wall motion abnormalities. Right Ventricle Mild right ventricular dilatation with normal function. Unable to estimate right ventricular systolic pressure. Right Atrium Normal right atrial size. Left Atrium Mildly increased left atrial volume. Mildly increased left atrial area. Mitral Valve Structurally normal mitral valve. No mitral stenosis, regurgitation or prolapse. Aortic Valve Trileaflet aortic valve. No aortic valve stenosis or regurgitation. Tricuspid Valve Structurally normal tricuspid valve. No tricuspid stenosis. Trace tricuspid regurgitation. Pulmonic Valve Structurally normal pulmonic valve. No pulmonic stenosis. No pulmonic regurgitation. Pericardium No pericardial effusion. Aorta Normal size aortic root and proximal ascending aorta. CONCLUSIONS Left ventricular ejection fraction 55-60% Moderately increased left ventricular wall thickness Mildly diarrhea left atrium Trace tricuspid regurgitation Previewed by: Dr. Main Whitt DO (Electronically Signed) Final Date: 18 Feb 2024 13:00
== END | disposition home or self-care (01) ==
LOC: RADECHMAIN 08:10
PROVIDERS: ATTEND Family Medicine
DX: R19.7 Diarrhea, unspecified (principal); I07.1 Rheumatic tricuspid insufficiency; I10 Essential (primary) hypertension; Z82.49 Family history of ischemic heart disease and other diseases of the circulatory system
CPT/HCPCS: 93306; Q9957